=== PATIENT | female | born 1955 | race Caucasian/White ===

== ENCOUNTER 2018-02-01 19:41 | Emergency (ER) | payer MEDICARE, MEDICAID ==
[~2018-02-01] VITALS: Ht 165.1 cm; Wt 97.1 kg
[2018-02-01 19:44] VITALS: BP 148/66
--- NOTE | 2018-02-01 19:53 | Emergency Room Report ---
History of Present Illness General Chief Complaint: Multiple Trauma/Fall Source: Patient, EMS Present Illness HPI Patient presents with reports of fall yesterday Patient reports that she tripped over her walker fell to the left side of her facial area Complains of discomfort to the left facial region also the right knee Denies any chest pain or shortness of breath denies any back or flank pain denies any dysuria frequency Patient reports that she was waiting for the physician's order to be sent for imaging Allergies: Coded Allergies: ACETAMINOPHEN (Unverified Allergy, Unknown, 02/01/18) HYDROCODONE (Unverified Allergy, Unknown, 02/01/18) MORPHINE (Unverified Allergy, Unknown, 02/01/18) OXYCODONE (Unverified Allergy, Unknown, 02/01/18) VANCOMYCIN (Unverified Allergy, Unknown, 02/01/18) Uncoded Allergies: TAPE (Allergy, Unknown, 02/01/18) Patient History Past Medical History: see triage record Pertinent Family History: none Reviewed Nursing Documentation: PMH: Agreed; PSxH: Agreed Nursing Documentation-PMH Past Medical History: No History, Except For Hx Hypertension: No - CHF and end stage renal Hx Dialysis: Yes - T, TH , Sat, Review of Systems All Other Systems: negative except mentioned in HPI Physical Exam Vital Signs Date Time Temp Pulse Resp B/P (MAP) Pulse Ox O2 Delivery O2 Flow Rate FiO2 02/01/18 19:31 98.0 63 18 148/66 93 Room Air 98.1 Sp02 EP Interpretation: reviewed, normal General Appearance: well appearing, no apparent distress Head: other - Ecchymosis and bruising left forehead involving the left periorbital region Eyes: bilateral eye PERRL, bilateral eye EOMI - No hyphema ENT: normal pharynx, no angioedema Neck: full range of motion, supple, thyroid normal Respiratory: lungs clear, normal breath sounds Cardiovascular #1: no edema Gastrointestinal: non tender Genitourinary: no CVA tenderness Musculoskeletal: other - Bruising and discomfort to the right knee Neurologic: alert, oriented x3, responsive Skin: other - Bruising left facial region also forehead Lymphatic: no adenopathy Medical Decision Making Diagnostic Impression: Primary Impression: Multiple injuries due to trauma Additional Impression: Contusion ER Course Given the patient's presentation and clinical exam imaging studies were initiated Patient provided with pain medicine Imaging studies are appropriate And patient stable for close outpatient follow-up Other X-Ray Diagnostic Results Other X-Ray Diagnostic Results : X-Ray ordered: Right knee # of Views/Limited Vs Complete: 4 View Indication: Pain EP Interpretation: Yes Interpretation: no dislocation, no soft tissue swelling, no fractures Impression: No acute disease Electronically Signed by: Kia Villa DO CT/MRI/US Diagnostic Results CT/MRI/US Diagnostic Results : Impression CT head:Impression: Chronic and age-related changes, as described Multiple old lacunar infarcts, as described Negative for acute intracranial bleed or mass effect CT facial:no acute disease Last Vital Signs Date Time Temp Pulse Resp B/P (MAP) Pulse Ox O2 Delivery O2 Flow Rate FiO2 02/01/18 19:44 98.1 63 18 148/66 93 Room Air 98.1 Status: improved Disposition: HOME, SELF-CARE Condition: Improved Additional Instructions: Patient is provided with the discharge instructions notified to follow up with primary doctor in the next 2-3 days otherwise return to the er with any worsening symptoms. Please note that this report is being documented using [employer] technology. This can lead to erroneous entry secondary to incorrect interpretation by the dictating instrument. Kia Villa DO Feb 01, 2018 19:53
[2018-02-01] MEDS ORDERED: ZINC SULFATE220 M1 ORAL (20:04)
[2018-02-01] MEDS ORDERED: CRESTOR10 M1 ORAL (20:04)
[2018-02-01] MEDS ORDERED: MULTIVITAMINS1 EAC8 ORAL (20:04)
[2018-02-01] MEDS ORDERED: ACETAMINOPHEN325 M1 ORAL (20:04)
[2018-02-01] MEDS ORDERED: WARFARIN SODIU2.5 MG ORAL (20:04)
[2018-02-01] MEDS ORDERED: LEXAPRO10 MG ORAL (20:04)
[2018-02-01] MEDS ORDERED: SYNTHROID25 MCG ORAL (20:04)
[2018-02-01] MEDS ORDERED: VITAMIN B COMP1 EAC2 ORAL (20:04)
[2018-02-01] MEDS ORDERED: PANTOPRAZOLE SO40 MG ORAL (20:04)
[2018-02-01] MEDS ORDERED: LACTULOSE20 GM/301 ORAL (20:04)
[2018-02-01] MEDS ORDERED: WARFARIN SODIUM3 MG ORAL (20:04)
[2018-02-01] MEDS ORDERED: BRILINTA90 MG PO (20:04)
[2018-02-01] MEDS ORDERED: NOVOLOG100 UNIT/3 SUBQ (20:04)
[2018-02-01] MEDS ORDERED: MYFORTIC180 MG PO (20:04)
[2018-02-01] MEDS ORDERED: METOPROLOL TART25 MG ORAL (20:04)
[2018-02-01 20:54] VITALS: BP_SYST 135; BP_SYST 148; BP_DIAS 59; BP_DIAS 66
--- NOTE | 2018-02-02 08:37 | Diagnostic Imaging Report ---
Indications: Left orbital injury, pain, status post fall Technique: Spiral images obtained through the facial bones. No IV contrast utilized. Multiplanar reconstructions were generated.Total dose length product 1811.7 mGycm. CTDIvol(s) 70.38,28.19 mGy. Dose reduction achieved using automated exposure control Comparison: none Findings: No acute fractures. No worrisome sinus air-fluid levels. There is a small polyp or mucous retention cyst in the right maxillary sinus. The nasal septum is midline. The maxillary ostia are patent. There is a tiny osteoma within a left ethmoid air cell. The optic globes and retroseptal orbits are intact. There is minimal if any periorbital soft tissue swelling on the left. The dentition is intact. Prosthetic material is seen in the right buccal region. The facial soft tissues are unremarkable. Impression: No acute bony trauma Minimal periorbital soft tissue swelling on the left Prosthesis in the right buccal region Right maxillary sinus disease Incidental finding tiny left ethmoid osteoma The CT scanner at [facility] is accredited by the [employer] and the scans are performed using protocols designed to limit radiation exposure to as low as reasonably achievable to attain images of sufficient resolution adequate for diagnostic evaluation.
--- NOTE | 2018-02-02 08:43 | Diagnostic Imaging Report ---
Indications: Head pain, status post fall, left orbital injury Technique: Spiral acquisitions obtained through the brain. Angled axial and coronal 5 x 5 mm slices were reconstructed. Total dose length product 1811.7 mGycm. CTDI vol(s) 70.38,28.19 mGy. Dose reduction achieved using automated exposure control Comparison: None. Findings: There is mild age-related enlargement of the ventricles and extra-axial CSF spaces. Old white matter lacunar infarcts are seen in the periventricular deep white matter bilaterally. There is also chronic periventricular deep white matter low-attenuation consistent with chronic ischemic change. There is an old lacunar infarct in the right side of the mary lou and midbrain. No acute intracranial hemorrhage or edema. No mass effect nor midline shift. There is age-related enlargement of the ventricles and extra axial CSF spaces. Impression: Chronic and age-related changes, as described Multiple old lacunar infarcts, as described Negative for acute intracranial bleed or mass effect This agrees with the preliminary interpretation provided overnight by [facility]. The CT scanner at [facility] is accredited by the [employer] and the scans are performed using protocols designed to limit radiation exposure to as low as reasonably achievable to attain images of sufficient resolution adequate for diagnostic evaluation.
--- NOTE | 2018-02-02 11:13 | Diagnostic Imaging Report ---
Indication: Trauma, pain, status post fall Technique: 3 views of the right knee Comparison: None Findings: There is degenerative joint space narrowing and proliferative change of the medial compartment. There is minimal patellofemoral degeneration as well. No acute fractures. No dislocations. There are vascular calcifications. Bones appear somewhat demineralized. Impression: Degenerative changes Osteopenia No acute bony trauma
== END 2018-02-01 20:57 ==
LOC: EDBD 19:41 → EMR 20:15
DX: S00.83XA Contusion of other part of head, initial encounter (principal); S80.01XA Contusion of right knee, initial encounter; W01.0XXA Fall on same level from slipping, tripping and stumbling without subsequent striking against object, initial encounter; Y92.9 Unspecified place or not applicable; I13.2 Hypertensive heart and chronic kidney disease with heart failure and with stage 5 chronic kidney disease, or end stage renal disease; I50.9 Heart failure, unspecified; N18.6 End stage renal disease; Z99.2 Dependence on renal dialysis; Z88.5 Allergy status to narcotic agent; Z88.6 Allergy status to analgesic agent
CPT/HCPCS: 70450; 70486; 99284